=== PATIENT | female | born 1980 | race Caucasian/White ===

== ENCOUNTER 2018-07-15 06:49 | Day surgery (SDC) | payer OTHER ==
[~2018-07-15] VITALS: Ht 172.7 cm; Wt 74.8 kg
[2018-07-15 06:57] VITALS: BP 107/77
[2018-07-15 10:08] VITALS: BP 107/65
== END 2018-07-15 10:00 | disposition home or self-care (01) ==
LOC: DS 06:49 → OR 07:30 → DS 10:00
PROVIDERS: Obstetrics & Gynecology
PROC: 0UBC7ZX Excision of Cervix, Via Natural or Artificial Opening, Diagnostic (ICD-10-PCS; 2018-07-15)
PROC: 0UDB7ZZ Extraction of Endometrium, Via Natural or Artificial Opening (ICD-10-PCS; principal; 2018-07-15 07:30)
DX: N72 Inflammatory disease of cervix uteri (principal); F32.9 Major depressive disorder, single episode, unspecified; F17.210 Nicotine dependence, cigarettes, uncomplicated
CPT/HCPCS: J0690; J2175; J2250; J3010

== ENCOUNTER 2018-07-19 12:16 | Emergency (ER) | payer OTHER ==
[~2018-07-19] VITALS: Ht 172.7 cm; Wt 74.4 kg
[2018-07-19 12:23] VITALS: Ht 172.7 cm; Wt 74.4 kg
[2018-07-19 14:17] LABS: BASOPHIL % 0.5 % (0-2); PLATELET COUNT 219 x10^3mcL (130-400)
[2018-07-19 14:18] LABS: RED CELL DISTRIBUTION WIDTH 14.8 % (11.5-14.5)
[2018-07-19 14:19] LABS: CALCIUM 8.7 mg/dL (8.5-10.1); CARBON DIOXIDE 27.3 mmol/L (21-32); CHLORIDE SERUM 108 mmol/L (98-107); CREATININE SERUM 0.6 mg/dL (0.6-1.0); GFR1 > 60 mL/min; GLUCOSE SERUM 90 mg/dL (74-106); POTASSIUM SERUM 3.9 mmol/L (3.5-5.1); SODIUM SERUM 144 mmol/L (136-145)
[2018-07-19 15:21] VITALS: BP 126/74
== END 2018-07-19 15:21 | disposition home or self-care (01) ==
LOC: ED 12:16
PROVIDERS: Emergency Medicine
DX: N99.820 Postprocedural hemorrhage of a genitourinary system organ or structure following a genitourinary system procedure (principal); Z98.51 Tubal ligation status
CPT/HCPCS: 36415; J7030